=== PATIENT | female | born 1930 | race Caucasian/White ===

== ENCOUNTER → 2017-05-21 | Outpatient (CLI) | payer MEDICARE, BC ==
[~2017-05-21] MED LIST: ASPI81 PO; ASPI81TA23 PO; CLAR10CA3 PO; CLON-352 PO; CLON0.1T PO; CLON0.2T PO; DILT180C56 PO; DILT240C44 PO; ESTR.625 PO; ESTR0.62 VAGINAL; FISHOIL PO; GLUC500C5 PO; IRBE150T15 PO; IRBE150T4 PO; MECL12.574 PO; NIAC500T5 PO; OMEGCAP PO; PREM0.622 PO; SIMV20 PO; SIMV20TA PO; TRIL135C PO
[2017-05-21 13:44] LABS: HEMATOCRIT 43.6 % (35.0-46.0); HEMOGLOBIN 14.7 GM/DL (11.6-15.3); MEAN CELL VOLUME 88.5 FL (80.0-100.0); MEAN CORPUSCULAR HEMOGLOBIN 29.8 PG (27.0-34.0); MEAN CORPUSCULAR HGB CONC 33.7 % (32.0-36.0); MEAN PLATELET VOLUME 8.7 FL (7.0-11.0); PLATELET COUNT 360 TH/MM3 (150-450); RED BLOOD COUNT 4.92 MIL/MM3 (4.00-5.30); RED CELL DISTRIBUTION WIDTH 12.7 % (11.6-17.2); WHITE BLOOD COUNT 8.9 TH/MM3 (4.0-11.0)
--- NOTE | 2017-05-21 14:12 | RADRPT ---
EXAM DATE/TIME: 05/21/2017 13:53 [place] COMPARISON: No previous studies available for comparison. INDICATIONS : Evaluate for penumonia, pneumothorax, or communicable disease. Pre op for LaForte procedure. MEDICAL HISTORY : Carcinoma, breast. Hypercholesterolemia. Hypertension. Arthritis. SURGICAL HISTORY : Appendectomy. Hysterectomy. Mastectomy, left. ENCOUNTER: Initial ACUITY: 1 day PAIN SCORE: 0/10 LOCATION: chest FINDINGS: PA and lateral views of the chest demonstrate the lungs to be symmetrically aerated without evidence of mass, infiltrate or effusion. The cardiomediastinal contours are unremarkable. Osseous structure s are intact. Absence of the left breast characteristic of prior mastectomy is noted. CONCLUSION: 1. No evidence of acute cardiopulmonary process. 2. Status post left mastectomy. Poli Velasquez MD on May 21, 2017 at 14:05 Board Certified Radiologist. This report was verified electronically.
[2017-05-21 14:17] LABS: ALBUMIN 3.7 GM/DL (3.4-5.0); ALT (GPT) 23 U/L (10-53); AST (GOT) 19 U/L (15-37); BICARBONATE 25.9 MEQ/L (21.0-32.0); BLOOD UREA NITROGEN 16 MG/DL (7-18); CALCIUM 9.8 MG/DL (8.5-10.1); CHLORIDE 108 MEQ/L (98-107); CREATININE 0.88 MG/DL (0.50-1.00); GLOMERULAR FILTRATION RATE 61 ML/MIN (>89); GLUCOSE,FASTING 82 MG/DL (74-99); SODIUM (NA) 142 MEQ/L (136-145)
[2017-05-21 14:20] LABS: ALKALINE PHOSPHATASE 35 U/L (45-117); TOTAL BILIRUBIN ADULT 0.4 MG/DL (0.2-1.0); TOTAL PROTEIN 8.1 GM/DL (6.4-8.2)
--- NOTE | 2017-05-22 11:35 | EKG ---
Date Performed: 05/21/2017 Time Performed: 12:45:36 PTAGE: 87 years EKG: Sinus rhythm LEFT ATRIAL ENLARGEMENT ABNORMAL ECG PREVIOUS TRACING 03/14/12 Since the previous tracing, no significant change noted DOCTOR: João Sahni Interpretating Date/Time 05/22/2017 11:29:28
== END ==
LOC: CPRE 13:18
PROVIDERS: ATTEND Obstetrics & Gynecology
DX: Z01.812 Encounter for preprocedural laboratory examination (principal); Z01.811 Encounter for preprocedural respiratory examination; Z01.810 Encounter for preprocedural cardiovascular examination; N81.10 Cystocele, unspecified; N76.5 Ulceration of vagina; R94.31 Abnormal electrocardiogram [ECG] [EKG]
CPT/HCPCS: 36415; 71046; 80053; 85027; 85730; 93005

== ENCOUNTER 2017-06-03 09:50 | Day surgery (SDC) | payer MEDICARE, BC ==
[~2017-06-03] VITALS: Ht 165.1 cm; Wt 65.5 kg
[~2017-06-03 09:50] MED LIST changes: -ASPI81 PO; -CLON-352 PO; -DILT180C56 PO; -FISHOIL PO; -IRBE150T4 PO; -PREM0.622 PO; -SIMV20 PO
[2017-06-03] MEDS ORDERED: LACTATED RINGER'S 1000 ML IV PRN (10:30)
[2017-06-03] MEDS ORDERED: SODIUM CHLORID 0.9% 500 ML IV PRN (10:30)
[2017-06-03] MEDS ORDERED: METOPROLOL TARTRATE 25 MG TAB PO PRN (10:30)
[2017-06-03] MEDS ORDERED: INSULIN HUMAN REGULAR 1,000 UNITS/10 ML VIAL SQ PRN (10:30)
[2017-06-03] MEDS ORDERED: POVIDONE IODINE 5% (ANTISEPSIS KIT) 4 APPLICATIONS EACH NARE PRN (10:30)
[2017-06-03] MEDS ORDERED: CHLORHEXIDINE GLUCONATE 2 % 1 PACK (2 CLOTHS) TOPICAL PRN (10:30)
[2017-06-03] MEDS ORDERED: METOPROLOL TARTRATE 5 MG/5 ML VIAL ONE (11:57)
[2017-06-03] MEDS ORDERED: DEXAMETHASONE SOD PHOS 4 MG/ML VIAL IV ONE (12:00)
[2017-06-03] MEDS ORDERED: ONDANSETRON HCL 4 MG/2 ML VIAL IV ONE (12:00)
[2017-06-03] MEDS ORDERED: GLYCOPYRROLATE 1 MG/5 ML SYRINGE IV PUSH ONE (12:00)
[2017-06-03] MEDS ORDERED: ePHEDrine/NS 25 MG/5 ML SYRINGE IV ONE (12:00)
[2017-06-03] MEDS ORDERED: LIDOCAINE HCL 1% PF 5 ML SYRINGE OTHER ONE (12:00)
[2017-06-03] MEDS ORDERED: LACTATED RINGER'S 1000 ML INJ 1,000 ML IV ONE (12:00)
[2017-06-03] MEDS ORDERED: PROPOFOL 200 MG/20 ML AMP IV ONE (12:00)
[2017-06-03] MEDS ORDERED: METOPROLOL TARTRATE 5 MG/5 ML VIAL IV PUSH ONE (12:45)
[2017-06-03] MEDS ORDERED: hydrALAZINE HCL 20 MG/ML VIAL ONE (13:35)
[2017-06-03] MEDS ORDERED: hydrALAZINE HCL 20 MG/ML VIAL IV ONE (13:45)
[2017-06-03] MEDS ORDERED: ACETAMINOPHEN 1000 MG/100 ML 100 ML IV ONE (14:29)
[2017-06-03] MEDS ORDERED: METHYLENE BLUE 10 MG/ML VIAL ONE (15:11)
[2017-06-03] MEDS ORDERED: DO NOT ADM ANY ANTICOAGULANT DRUGS PRN (16:30)
[2017-06-03] MEDS ORDERED: ONDANSETRON HCL 4 MG/2 ML VIAL IVP PRN (16:30)
[2017-06-03] MEDS ORDERED: IBUPROFEN 600 MG TAB PO PRN (16:30)
[2017-06-03] MEDS ORDERED: ACETAMINOPHEN/HYDROcodone 325 MG/5 MG TAB PO PRN (16:30)
[2017-06-03] MEDS ORDERED: SODIUM CHLORIDE 0.9% FLUSH 10 ML FLUSH IV FLUSH PRN (16:30)
[2017-06-03] MEDS ORDERED: MECLIZINE HCL 25 MG TAB PO PRN (16:30)
[2017-06-03] MEDS ORDERED: *morphine SULFATE 4 MG/ML PERIprocedure ONLY ONE (16:52)
[2017-06-03] MEDS ORDERED: LACTATED RINGER'S 1000 ML INJ 1,000 ML IV SCH (17:00)
--- NOTE | 2017-06-03 17:11 | MP ---
cc: Onel Samson MD DATE OF OPERATION: 06/03/2017 PREOPERATIVE DIAGNOSES: 1. Total procidentia. 2. Huge cystocele. POSTOPERATIVE DIAGNOSES: 1. Total procidentia. 2. Huge cystocele. PROCEDURE PERFORMED: Anterior repair, LeForte procedure and perineorrhaphy. SURGEON: Onel Samson MD COSURGEON: Rolly Henry MD FINDINGS: Examination under anesthesia, the vagina was atrophic and it was approximately 10 x 10 cm outside of the vaginal introitus. There was no cervix or uterus present. COMPLICATIONS: None. COUNTS: Correct. ESTIMATED BLOOD LOSS: 100 mL FLUIDS: Crystalloids. The patient tolerated the procedure well and went to the recovery room in good condition. DESCRIPTION OF PROCEDURE: The patient was taken to the operating room and identified by name band and verbally, given a general anesthetic and carefully placed in dorsal lithotomy position for the proposed surgery. A timeout was taken, and once that had occurred, we proceeded with examination under anesthesia. An incision was made below the urethral meatus and the entire sac was then dissected free from the mucosa. The underlying endopelvic fascia was then plicated to completely obliterate the vagina and the large amount of excess mucosa was trimmed. This was repaired with a 2-0 Vicryl in a running fashion with excellent results. Several small [id number] needed to be included there. Once this had been accomplished, we had placed a methylene blue into the bladder and there was no blue material during the entire case. Once the excess mucosa was trimmed, we reapproximated the mucosa with a 2-0 Vicryl. Examination under anesthesia was carried out by both surgeons at this time and felt that an anterior repair would also help this lady. The bladder was instilled with a little bit of methylene blue and an Allis clamp was placed in the vaginal mucosa below the urethral meatus and using a blade, the mucosa was sharply incised. This was taken down the entire length of the vagina and the mucosa was carefully sharply and bluntly dissected off of the underlying endopelvic fascia and bladder. Once this had been accomplished, it was a 10 x 12 cm mass. It was pushed back into the vaginal canal and the endopelvic fascia was plicated starting at the level of the Lopez catheter. We plicated the endopelvic fascia with 2-0 Vicryl and we closed the entire vagina closed, plicating the endopelvic fascia down the whole way of the vagina. The excess mucosa was trimmed and the mucosa was reapproximated with a 2-0 Vicryl in a running fashion with excellent results. At this time, she had a small perineum, probably 2 fingerbreadths, and we made a coronal incision along the perineum, and we dissected up to the posterior vaginal mucosa, probably 3 cm, to build up the perineum. The perineum was then plicated together coronally with 2-0 Vicryl interrupteds, and the mucosa vaginally was repaired with 2-0 Vicryl as well. The exterior portion was repaired with a 3-0 Vicryl in a subcuticular fashion. The vagina was irrigated out, what little was left. Hemostasis was excellent and she tolerated the procedure well and went to the recovery room in good condition. We will be keeping her overnight since it is already 4:30, she has nobody at home with her to take care of her and because she is 87 years old. R. MD CAMPBELL Dickson/JEREMIAH , 04:30 PM , 05:10 PM
[2017-06-03 18:25] VITALS: BP 157/61; PULSE 70; RESP 14; TEMP 97.5; O2SAT 97
[2017-06-03 20:13] VITALS: BP 158/62; PULSE 96; RESP 16; TEMP 98.1
[2017-06-03] MEDS: LOSARTAN 50 MG TAB PO SCH (20:44)
[2017-06-03] MEDS ORDERED: SODIUM CHLORIDE 0.9% FLUSH 10 ML FLUSH IV FLUSH SCH (21:00)
[2017-06-03] MEDS ORDERED: cloNIDine HCL 0.2 MG TAB PO SCH (21:00)
[2017-06-03 23:57] VITALS: BP 164/62; PULSE 64; RESP 16; TEMP 98.1
[2017-06-04 04:19] VITALS: BP 184/65; PULSE 64; RESP 16; TEMP 98
[2017-06-04 06:00] VITALS: BP 167/64
[2017-06-04 08:00] VITALS: BP 149/62; PULSE 71; RESP 18; TEMP 97.9; O2SAT 97
[2017-06-04] MEDS: cloNIDine HCL 0.1 MG TAB PO SCH ×2 (08:00→15:00)
--- NOTE | 2017-06-04 08:19 | HHI.PR ---
Subjective Remarks Doing well, pain is well controlled, eating well. Objective Vital Signs Vital Signs Date Time Temp Pulse Resp B/P (MAP) Pulse Ox O2 Delivery O2 Flow Rate FiO2 06/04/17 06:00 167/64 (98) 06/04/17 04:19 98.0 64 16 184/65 (104) 06/03/17 23:57 98.1 64 16 164/62 (96) 06/03/17 20:13 98.1 96 16 158/62 (94) 06/03/17 18:25 97.5 70 14 157/61 (93) 97 06/03/17 17:30 97.9 68 12 129/62 (84) 98 Room Air 06/03/17 17:15 68 12 130/59 (82) 99 Room Air 06/03/17 17:00 72 12 128/61 (83) 97 Room Air 06/03/17 16:45 79 12 118/58 (78) 97 Nasal Cannula 2 06/03/17 16:30 68 12 107/54 (71) 95 Nasal Cannula 2 06/03/17 16:25 97.9 44 12 66/33 (44) 97 Nasal Cannula 2 06/03/17 13:49 197/95 (129) 06/03/17 13:43 68 207/78 (121) 06/03/17 13:23 65 200/80 (120) 06/03/17 13:13 61 197/79 (118) 06/03/17 13:00 200/87 (124) 06/03/17 12:30 187/85 (119) 06/03/17 11:00 98.7 105 18 97 I/O 06/03/17 06/03/17 06/03/17 06/04/17 06/04/17 06/04/17 07:00 15:00 23:00 07:00 15:00 23:00 Intake Total 1300 ml Output Total 800 ml 1475 ml Balance 500 ml -1475 ml Intake Other 1300 ml Output Urine Total 700 ml 1475 ml Estimated Blood Loss 100 ml Objective Remarks Chest is clear, regular rate and rhythm. Abdomen is soft and non-distended. Incision is clean and dry. Ext no CCE. A/P Assessment and Plan Post Op Day 1 Doing well Home today and return to office in two weeks. Will get home health care to follow up when she goes home. May take home meds. Onel Samson MD Jun 04, 2017 08:19
--- NOTE | 2017-06-04 08:23 | HHI.DCPOC ---
Discharge Care Plan Diagnosis: (1) Relaxation of vaginal outlet or pelvis (2) Pelvic relaxation Report Symptoms to Your Doctor -Temperature above 100.5 degrees -Redness, of incision or excessive or foul smelling drainage -Unusual pain or calf pain -Increased vaginal bleeding -Painful or difficulty urinating -Feelings of extreme sadness or anxiety after 2 weeks Goals to Promote Your Health * To prevent worsening of your condition and complications * To maintain your health at the optimal level Directions to Meet Your Goals Take your medications as prescribed Follow your dietary instruction Follow activity as directed Ensure plenty of rest for recovery Drink fluids for hydration Keep your appointments as scheduled Take your immunizations and boosters as scheduled If your symptoms worsen call your PCP, if no PCP go to Urgent Care Center or Emergency Room Smoking is Dangerous to Your Health. Avoid second hand smoke Call the 24-hour crisis hotline for domestic abuse at Onel Samson MD Jun 04, 2017 08:23
[2017-06-04] MEDS ORDERED: LORATADINE 10 MG TAB PO SCH (09:00)
[2017-06-04] MEDS: LOSARTAN 50 MG TAB PO SCH (09:00)
[2017-06-04] MEDS ORDERED: ASPIRIN EC 81 MG TABEC PO SCH (09:00)
[2017-06-04] MEDS ORDERED: DILTIAZEM-CD 240 MG CAP ER PO SCH (09:00)
[2017-06-04 12:21] VITALS: BP 167/83; PULSE 83; RESP 18; TEMP 98; O2SAT 99
[2017-06-04 14:15] VITALS: BP 152/58; PULSE 54; RESP 16; TEMP 97.6; O2SAT 96
== END 2017-06-04 16:04 | disposition home or self-care (01) ==
LOC: HSDC 09:50 → H1EA 17:31 → HSDC 06-04 16:04
PROVIDERS: ATTEND Obstetrics & Gynecology
DX: N81.3 Complete uterovaginal prolapse (principal); N81.10 Cystocele, unspecified; I10 Essential (primary) hypertension
CPT/HCPCS: 00942; 57120; 94150; J0131; J1100; J2270; J2405; J3010; J7120; J0360